=== PATIENT | female | born 2000 | race African-American/Black ===

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

== ENCOUNTER 2018-09-15 05:00 | Emergency (ER) | payer OTHER ==
[2018-09-15] MEDS ORDERED: TYLENOL PO ONE (05:08)
[2018-09-15 05:12] VITALS: BP 137/98
[2018-09-15 05:50] LABS: Basophils % (Auto) 0.2 % (0.0-1.8); Eosinophils # (Auto) 0.1 K/mm3 (0.0-0.4); Eosinophils % (Auto) 1.3 % (0.0-4.3); Hematocrit 38.4 % (30.3-42.9); Hemoglobin 12.8 gm/dl (10.1-14.3); Lymphocytes # (Auto) 1.1 K/mm3 (1.2-5.4); Lymphocytes % (Auto) 17.9 % (13.4-35.0); Mean Corpuscular HGB Conc 33 % (30-34); Mean Corpuscular Volume 85 fl (79-97); Monocytes # (Auto) 0.6 K/mm3 (0.0-0.8); Monocytes % (Auto) 9.8 % (0.0-7.3); Platelet Count 222 K/mm3 (140-440); Red Blood Count 4.52 M/mm3 (3.65-5.03); Red Cell Distribution Width 13.8 % (13.2-15.2)
[2018-09-15 05:56] LABS: Bilirubin,Urine NEG (Negative); Blood,Urine LG (Negative); Color,Urine Yellow (Yellow); Mucus,Urine FEW /HPF; Protein,Urine <15 mg/dL mg/dL (Negative); RBC,Urine > 182.0 /HPF (0.0-6.0); Urobilinogen,Urine < 2.0 mg/dL (<2.0)
[2018-09-15 05:57] LABS: HCG Qualitative,Urine Negative (Negative)
[2018-09-15 06:18] LABS: Alanine Aminotransferase 10 units/L (7-56); Albumin 4.1 g/dL (3.9-5); BUN/Creatinine Ratio 13; Blood Urea Nitrogen 5 mg/dL (7-17); Calcium 8.6 mg/dL (8.4-10.2); Hemolysis Index 4
--- NOTE | 2018-09-15 08:31 | Emergency Department Report ---
ED Abdominal Pain HPI - General Chief Complaint: Abdominal Pain Stated Complaint: ABD PAIN Time Seen by Provider: 09/15/18 08:02 Source: patient Mode of arrival: Ambulatory Limitations: No Limitations - History of Present Illness Initial Comments: She is a 18-year-old female comes to the ER complaining of abdominal pain. She started her period and is concerned that she may be . vSS. NO FEVER. NO TACHYCARDIA. BP NORMAL. Severity scale (0 -10): 5 - Related Data Home Medications Medication Instructions Recorded Confirmed Last Taken Pnv No.103/Folic/Om3s/Fish Oil 1 each PO BID 02/23/17 02/23/17 02/22/17 [ Gummies] Previous Rx's Medication Instructions Recorded Last Taken Type HYDROcodone/APAP 5-325 [[place] 1 each PO Q6HR PRN #30 tablet 02/25/17 Unknown Rx 5/325] Ibuprofen [Motrin] 800 mg PO Q8HR PRN #60 tablet 02/25/17 Unknown Rx Allergies Allergy/AdvReac Type Severity Reaction Status Date / Time No Known Allergies Allergy Verified 11/22/15 10:25 ED Review of Systems ROS: Stated complaint: ABD PAIN Other details as noted in HPI Comment: All other systems reviewed and negative ED Past Medical Hx - Past Medical History Previous Medical History?: No Hx Hypertension: No Hx Congestive Heart Failure: No Hx Diabetes: No Hx Deep Vein Thrombosis: No Hx Renal Disease: No Hx Sickle Cell Disease: No Hx Seizures: No Hx Asthma: No Hx COPD: No Hx HIV: No - Surgical History Past Surgical History?: No - Family History Family history: no significant - Social History Smoking Status: Never Smoker Substance Use Type: None - Medications Home Medications: Home Medications Medication Instructions Recorded Confirmed Last Taken Type Pnv No.103/Folic/Om3s/Fish Oil 1 each PO BID 02/23/17 02/23/17 02/22/17 History [ Gummies] HYDROcodone/APAP 5-325 [[place] 1 each PO Q6HR PRN #30 tablet 02/25/17 Unknown Rx 5/325] Ibuprofen [Motrin] 800 mg PO Q8HR PRN #60 tablet 02/25/17 Unknown Rx ED Physical Exam - General Limitations: No Limitations General appearance: alert - Head Head exam: Present: atraumatic - Eye Eye exam: Present: PERRL - ENT ENT exam: Present: mucous membranes moist - Neck Neck exam: Present: normal inspection - Respiratory Respiratory exam: Present: normal lung sounds bilaterally - Cardiovascular Cardiovascular Exam: Present: regular rate - GI/Abdominal GI/Abdominal exam: Present: soft, normal bowel sounds - Rectal Rectal exam: Present: deferred - Extremities Exam Extremities exam: Present: normal inspection, full ROM - Back Exam Back exam: Present: normal inspection, full ROM - Neurological Exam Neurological exam: Present: alert, oriented X3, CN II-XII intact - Psychiatric Psychiatric exam: Present: normal affect, normal mood - Skin Skin exam: Present: warm, dry, intact ED Course Vital Signs 09/15/18 09/15/18 09/15/18 05:04 05:06 05:11 Temperature 98.0 F 98 F Pulse Rate 89 90 Respiratory 18 18 16 Rate Blood Pressure 137/98 137/98 O2 Sat by Pulse 100 100 Oximetry ED Medical Decision Making - Lab Data Result diagrams: 09/15/18 05:20 09/15/18 05:20 - Medical Decision Making Vital Signs 09/15/18 09/15/18 09/15/18 05:04 05:06 05:11 Temperature 98.0 F 98 F Pulse Rate 89 90 Respiratory 18 18 16 Rate Blood Pressure 137/98 137/98 O2 Sat by Pulse 100 100 Oximetry Lab Results 09/15/18 09/15/18 09/15/18 Range/Units 05:20 05:20 05:20 WBC 6.3 (4.5-11.0) K/mm3 RBC 4.52 (3.65-5.03) M/mm3 Hgb 12.8 (10.1-14.3) gm/dl Hct 38.4 (30.3-42.9) % MCV 85 (79-97) fl MCH 28 (28-32) pg MCHC 33 (30-34) % RDW 13.8 (13.2-15.2) % Plt Count 222 (140-440) K/mm3 Lymph % (Auto) 17.9 (13.4-35.0) % [place] % (Auto) 9.8 H (0.0-7.3) % Eos % (Auto) 1.3 (0.0-4.3) % Baso % (Auto) 0.2 (0.0-1.8) % Lymph # 1.1 L (1.2-5.4) K/mm3 [place] # 0.6 (0.0-0.8) K/mm3 Eos # 0.1 (0.0-0.4) K/mm3 Baso # 0.0 (0.0-0.1) K/mm3 Seg Neutrophils % 70.8 H (40.0-70.0) % Seg Neutrophils # 4.5 (1.8-7.7) K/mm3 Sodium 138 (137-145) mmol/L Potassium 3.8 (3.6-5.0) mmol/L Chloride 101.9 (98-107) mmol/L Carbon Dioxide 23 (22-30) mmol/L Anion Gap 17 mmol/L BUN 5 L (7-17) mg/dL Creatinine 0.4 L (0.7-1.2) mg/dL Estimated GFR > 60 ml/min BUN/Creatinine Ratio 13 % Glucose 98 (65-100) mg/dL Calcium 8.6 (8.4-10.2) mg/dL Total Bilirubin 1.30 H (0.1-1.2) mg/dL AST 13 (5-40) units/L ALT 10 (7-56) units/L Alkaline Phosphatase 57 (35-129) units/L Total Protein 6.8 (6.3-8.2) g/dL Albumin 4.1 (3.9-5) g/dL Albumin/Globulin Ratio 1.5 % Lipase 28 (13-60) units/L Urine Color (Yellow) Urine Turbidity (Clear) Urine pH (5.0-7.0) Ur Specific [place] (1.003-1.030) Urine Protein (Negative) mg/dL Urine Glucose (UA) (Negative) mg/dL Urine Ketones (Negative) mg/dL Urine Blood (Negative) Urine Nitrite (Negative) Urine Bilirubin (Negative) Urine Urobilinogen (<2.0) mg/dL Ur Leukocyte Esterase (Negative) Urine WBC (Auto) (0.0-6.0) /HPF Urine RBC (Auto) (0.0-6.0) /HPF U Epithel Cells (Auto) (0-13.0) /HPF Urine Mucus /HPF Urine HCG, Qual (Negative) 09/15/18 Range/Units 05:37 WBC (4.5-11.0) K/mm3 RBC (3.65-5.03) M/mm3 Hgb (10.1-14.3) gm/dl Hct (30.3-42.9) % MCV (79-97) fl MCH (28-32) pg MCHC (30-34) % RDW (13.2-15.2) % Plt Count (140-440) K/mm3 Lymph % (Auto) (13.4-35.0) % [place] % (Auto) (0.0-7.3) % Eos % (Auto) (0.0-4.3) % Baso % (Auto) (0.0-1.8) % Lymph # (1.2-5.4) K/mm3 [place] # (0.0-0.8) K/mm3 Eos # (0.0-0.4) K/mm3 Baso # (0.0-0.1) K/mm3 Seg Neutrophils % (40.0-70.0) % Seg Neutrophils # (1.8-7.7) K/mm3 Sodium (137-145) mmol/L Potassium (3.6-5.0) mmol/L Chloride (98-107) mmol/L Carbon Dioxide (22-30) mmol/L Anion Gap mmol/L BUN (7-17) mg/dL Creatinine (0.7-1.2) mg/dL Estimated GFR ml/min BUN/Creatinine Ratio % Glucose (65-100) mg/dL Calcium (8.4-10.2) mg/dL Total Bilirubin (0.1-1.2) mg/dL AST (5-40) units/L ALT (7-56) units/L Alkaline Phosphatase (35-129) units/L Total Protein (6.3-8.2) g/dL Albumin (3.9-5) g/dL Albumin/Globulin Ratio % Lipase (13-60) units/L Urine Color Yellow (Yellow) Urine Turbidity Hazy (Clear) Urine pH 7.0 (5.0-7.0) Ur Specific [place] 1.005 (1.003-1.030) Urine Protein <15 mg/dl (Negative) mg/dL Urine Glucose (UA) Neg (Negative) mg/dL Urine Ketones Neg (Negative) mg/dL Urine Blood Lg (Negative) Urine Nitrite Neg (Negative) Urine Bilirubin Neg (Negative) Urine Urobilinogen < 2.0 (<2.0) mg/dL Ur Leukocyte Esterase Neg (Negative) Urine WBC (Auto) 8.0 H (0.0-6.0) /HPF Urine RBC (Auto) > 182.0 (0.0-6.0) /HPF U Epithel Cells (Auto) 1.0 (0-13.0) /HPF Urine Mucus Few /HPF Urine HCG, Qual Negative (Negative) LABS AND PREG DISCUSSED WITH PT DC HOME WITH DC PLAN OF CARE Critical care attestation.: If time is entered above; I have spent that time in minutes in the direct care of this critically ill patient, excluding procedure time. ED Disposition Clinical Impression: Menses painful Disposition: DC-01 TO HOME OR SELFCARE Is pt being admited?: No Does the pt Need Aspirin: No Condition: Stable Additional Instructions: HYDRATE WELL WITH WATER MOTRIN OR TYLENOL FOR PAIN DIET TOLERATED FOLLOW UP PCP REFERRAL BELOW TBILI 1.3 TODAY LIPASE NORMAL OTHER LABS ALL NORMAL NEG Referrals: SELENA BRAUN [Other] - 3-5 Days Time of Disposition: 08:50
== END 2018-09-15 09:00 | disposition home or self-care (01) ==
LOC: ED 05:00
DX: N94.6 Dysmenorrhea, unspecified (principal); Z79.899 Other long term (current) drug therapy
CPT/HCPCS: 36415; 80053; 81001; 81025; 83690; 85025; 99283

== ENCOUNTER 2020-05-15 10:39 | Emergency (ER) | payer SELFPAY ==
--- NOTE | 2020-05-15 12:13 | Emergency Department Report ---
ED HPI - General Chief complaint: Abdominal Pain Stated complaint: 9WKS /STOMACH PAIN Time Seen by Provider: 05/15/20 12:12 Source: patient Mode of arrival: Ambulatory Limitations: No Limitations - History of Present Illness Initial comments: Patient is a 19-year-old female who presents emergency room with complaints of lower abdominal pain that began at 5 AM while at work today. She states that whenever she walks around she begins to feel the pain but when she sits down and rest she has no pain. She states that she had to leave work today. 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 She denies any fever, nausea, vomiting, diarrhea, urinary symptoms, vaginal bleeding, vaginal discharge, back pain. States her last menstrual cycle was February 12. She states that she is approximately 9 weeks . She denies any past medical history. No allergies to medications. /P: 3/A: 0 - Related Data Home Medications Medication Instructions Recorded Confirmed Last Taken Pnv No.103/Folic/Om3s/Fish Oil 1 each PO BID 02/23/17 02/23/17 02/22/17 [ Gummies] Previous Rx's Medication Instructions Recorded Last Taken Type HYDROcodone/APAP 5-325 [[place] 1 each PO Q6HR PRN #30 tablet 02/25/17 Unknown Rx 5/325] Ibuprofen [Motrin] 800 mg PO Q8HR PRN #60 tablet 02/25/17 Unknown Rx Allergies Allergy/AdvReac Type Severity Reaction Status Date / Time No Known Allergies Allergy Verified 11/22/15 10:25 ED Review of Systems ROS: Stated complaint: 9WKS /STOMACH PAIN Other details as noted in HPI Comment: All other systems reviewed and negative ED Past Medical Hx - Past Medical History Previous Medical History?: No Hx Hypertension: No Hx Congestive Heart Failure: No Hx Diabetes: No Hx Deep Vein Thrombosis: No Hx Renal Disease: No Hx Sickle Cell Disease: No Hx Seizures: No Hx Asthma: No Hx COPD: No Hx HIV: No - Surgical History Past Surgical History?: No - Social History Smoking Status: Never Smoker Substance Use Type: None - Medications Home Medications: Home Medications Medication Instructions Recorded Confirmed Last Taken Type Pnv No.103/Folic/Om3s/Fish Oil 1 each PO BID 02/23/17 02/23/17 02/22/17 History [ Gummies] HYDROcodone/APAP 5-325 [[place] 1 each PO Q6HR PRN #30 tablet 02/25/17 Unknown Rx 5/325] Ibuprofen [Motrin] 800 mg PO Q8HR PRN #60 tablet 02/25/17 Unknown Rx ED Physical Exam - General Limitations: No Limitations General appearance: alert, in no apparent distress - Head Head exam: Present: atraumatic, normocephalic - Eye Eye exam: Present: normal appearance - ENT ENT exam: Present: mucous membranes moist - Respiratory Respiratory exam: Present: normal lung sounds bilaterally. Absent: respiratory distress, wheezes, rales, rhonchi, stridor, chest wall tenderness, accessory muscle use, decreased breath sounds, prolonged expiratory - Cardiovascular Cardiovascular Exam: Present: regular rate, normal rhythm, normal heart sounds. Absent: systolic murmur, diastolic murmur, rubs, gallop - GI/Abdominal GI/Abdominal exam: Present: soft, normal bowel sounds. Absent: distended, tenderness, guarding, rebound, rigid - Neurological Exam Neurological exam: Present: alert, oriented X3 - Psychiatric Psychiatric exam: Present: normal affect, normal mood - Skin Skin exam: Present: warm, dry, intact ED Course Vital Signs 05/15/20 05/15/20 11:15 15:33 Temperature 98.3 F 97.9 F Pulse Rate 82 68 Respiratory 18 16 Rate Blood Pressure 108/70 Blood Pressure 122/71 [Right] O2 Sat by Pulse 100 100 Oximetry ED Medical Decision Making - Lab Data Result diagrams: 05/15/20 12:17 05/15/20 12:17 Lab Results 05/15/20 05/15/20 05/15/20 Range/Units 12:17 12:17 12:17 WBC 8.7 (4.5-11.0) K/mm3 RBC 4.17 (3.65-5.03) M/mm3 Hgb 12.6 (10.1-14.3) gm/dl Hct 35.9 (30.3-42.9) % MCV 86 (79-97) fl MCH 30 (28-32) pg MCHC 35 H (30-34) % RDW 14.8 (13.2-15.2) % Plt Count 248 (140-440) K/mm3 Lymph % (Auto) 23.0 (13.4-35.0) % [place] % (Auto) 10.0 H (0.0-7.3) % Eos % (Auto) 0.8 (0.0-4.3) % Baso % (Auto) 0.3 (0.0-1.8) % Lymph # (Auto) 2.0 (1.2-5.4) K/mm3 [place] # (Auto) 0.9 H (0.0-0.8) K/mm3 Eos # (Auto) 0.1 (0.0-0.4) K/mm3 Baso # (Auto) 0.0 (0.0-0.1) K/mm3 Seg Neutrophils % 65.9 (40.0-70.0) % Seg Neutrophils # 5.7 (1.8-7.7) K/mm3 Sodium 136 L (137-145) mmol/L Potassium 3.9 (3.6-5.0) mmol/L Chloride 100.6 (98-107) mmol/L Carbon Dioxide 27 (22-30) mmol/L Anion Gap 12 mmol/L BUN 9 (7-17) mg/dL Creatinine 0.4 L (0.6-1.2) mg/dL Estimated GFR > 60 ml/min BUN/Creatinine Ratio 23 % Glucose 61 L (65-100) mg/dL Calcium 9.5 (8.4-10.2) mg/dL Total Bilirubin 0.50 (0.1-1.2) mg/dL AST 15 (5-40) units/L ALT 9 (7-56) units/L Alkaline Phosphatase 44 (35-129) units/L Total Protein 7.9 (6.3-8.2) g/dL Albumin 4.1 (3.9-5) g/dL Albumin/Globulin Ratio 1.1 % Lipase 41 (13-60) units/L HCG, Quant > 81905 H (0-4) mIU/mL Urine Color (Yellow) Urine Turbidity (Clear) Urine pH (5.0-7.0) Ur Specific [place] (1.003-1.030) Urine Protein (Negative) mg/dL Urine Glucose (UA) (Negative) mg/dL Urine Ketones (Negative) mg/dL Urine Blood (Negative) Urine Nitrite (Negative) Urine Bilirubin (Negative) Urine Urobilinogen (<2.0) mg/dL Ur Leukocyte Esterase (Negative) Urine WBC (Auto) (0.0-6.0) /HPF Urine RBC (Auto) (0.0-6.0) /HPF U Epithel Cells (Auto) (0-13.0) /HPF Urine Mucus /HPF 05/15/20 Range/Units 12:28 WBC (4.5-11.0) K/mm3 RBC (3.65-5.03) M/mm3 Hgb (10.1-14.3) gm/dl Hct (30.3-42.9) % MCV (79-97) fl MCH (28-32) pg MCHC (30-34) % RDW (13.2-15.2) % Plt Count (140-440) K/mm3 Lymph % (Auto) (13.4-35.0) % [place] % (Auto) (0.0-7.3) % Eos % (Auto) (0.0-4.3) % Baso % (Auto) (0.0-1.8) % Lymph # (Auto) (1.2-5.4) K/mm3 [place] # (Auto) (0.0-0.8) K/mm3 Eos # (Auto) (0.0-0.4) K/mm3 Baso # (Auto) (0.0-0.1) K/mm3 Seg Neutrophils % (40.0-70.0) % Seg Neutrophils # (1.8-7.7) K/mm3 Sodium (137-145) mmol/L Potassium (3.6-5.0) mmol/L Chloride (98-107) mmol/L Carbon Dioxide (22-30) mmol/L Anion Gap mmol/L BUN (7-17) mg/dL Creatinine (0.6-1.2) mg/dL Estimated GFR ml/min BUN/Creatinine Ratio % Glucose (65-100) mg/dL Calcium (8.4-10.2) mg/dL Total Bilirubin (0.1-1.2) mg/dL AST (5-40) units/L ALT (7-56) units/L Alkaline Phosphatase (35-129) units/L Total Protein (6.3-8.2) g/dL Albumin (3.9-5) g/dL Albumin/Globulin Ratio % Lipase (13-60) units/L HCG, Quant (0-4) mIU/mL Urine Color Yellow (Yellow) Urine Turbidity Clear (Clear) Urine pH 6.0 (5.0-7.0) Ur Specific [place] 1.020 (1.003-1.030) Urine Protein <15 mg/dl (Negative) mg/dL Urine Glucose (UA) Neg (Negative) mg/dL Urine Ketones Neg (Negative) mg/dL Urine Blood Neg (Negative) Urine Nitrite Neg (Negative) Urine Bilirubin Neg (Negative) Urine Urobilinogen < 2.0 (<2.0) mg/dL Ur Leukocyte Esterase Neg (Negative) Urine WBC (Auto) 1.0 (0.0-6.0) /HPF Urine RBC (Auto) 1.0 (0.0-6.0) /HPF U Epithel Cells (Auto) 6.0 (0-13.0) /HPF Urine Mucus Few /HPF - Radiology Data Radiology results: report reviewed Ordering Physician: BREN CHAND Date of Service: 05/15/20 Procedure(s): US OB <= 14 weeks fetus Accession Number(s): [id number] cc: BREN CHAND US OB <= 14 weeks fetus INDICATION / CLINICAL INFORMATION: , abd pain. COMPARISON: None available. FINDINGS: Single, viable intrauterine . heart rate 164. [place]-rump length measures 14 mm, corresponding to a gestational age of 7 weeks 5 days. 2.3 cm hypoechoic but not completely cystic left ovarian mass could represent corpus luteal cyst. Right ovary is normal. IMPRESSION: 1. Viable 7 week 5 day intrauterine . Signer Name: Khari Pichardo MD Signed: 05/15/2020 1:59 PM Workstation Name: [id number] Transcribed By: TM Dictated By: Khari Pichardo MD Electronically Authenticated By: Khari Pichardo MD Signed Date/Time: 05/15/20 3602 DD/ 1357 TD/TT: - Medical Decision Making Patient is a 19-year-old female who presents emergency room with complaints of lower abdominal pain that began at 5 AM while at work today. She states that whenever she walks around she begins to feel the pain but when she sits down and rest she has no pain. She states that she had to leave work today. 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 She denies any fever, nausea, vomiting, diarrhea, urinary symptoms, vaginal bleeding, vaginal discharge, back pain. States her last menstrual cycle was February 12. She states that she is approximately 9 weeks . She denies any past medical history. No allergies to medications. /P: 3/A: 0. vitals are normal. No abdominal tenderness on exam, no guarding, no rebound, no rigidity, normal bowel sounds, no peritoneal signs. Labs with mildly decreased blood sugar, patient given juice while in the emergency department. UA is within normal limits. Patient is Rh+ upon chart review. OB ultrasound 1. Viable 7 week 5 day intrauterine , 2.3 cm hypoechoic but not completely cystic left ovarian mass could represent corpus luteal cyst. Right ovary is normal. Discussed all results with patient and answered questions, patient given her ultrasound report. Patient given Tylenol in the emergency department and symptoms improved. Advised patient May take Tylenol as needed for discomfort. Increase your water intake. Follow-up with your E M ASSEMBLER. Follow-up with your primary care doctor. Return to emergency room for any new or worsening symptoms. - Differential Diagnosis Ectopic, IUP, ovarian cyst, fibroids, UTI, miscarriage, placenta previa Critical care attestation.: If time is entered above; I have spent that time in minutes in the direct care of this critically ill patient, excluding procedure time. ED Disposition Clinical Impression: Ovarian mass, left Abdominal pain in Qualifiers: Trimester: first trimester Qualified Code(s): O26.891 - Other specified pr egnancy related conditions, first trimester Disposition: DC-01 TO HOME OR SELFCARE Is pt being admited?: No Does the pt Need Aspirin: No Condition: Stable Instructions: Abdominal Pain During , Hrud-we-[id number], Abdominal Pain (ED) Additional Instructions: May take Tylenol as needed for discomfort. Increase your water intake. Follow- up with your E M ASSEMBLER. Follow-up with your primary care doctor. Return to emergency room for any new or worsening symptoms. Referrals: PRIMARY CAREMD [Primary Care Provider] - 2-3 Days [facility] [Provider Group] - 2-3 Days Time of Disposition: 15:17 Print Language: UZBEK
[2020-05-15 12:47] LABS: Bilirubin,Urine NEG (Negative); Blood,Urine NEG (Negative); Color,Urine Yellow (Yellow); Mucus,Urine FEW /HPF; Protein,Urine <15 mg/dL mg/dL (Negative); Urobilinogen,Urine < 2.0 mg/dL (<2.0)
[2020-05-15 13:00] LABS: Basophils % (Auto) 0.3 % (0.0-1.8); Eosinophils # (Auto) 0.1 K/mm3 (0.0-0.4); Eosinophils % (Auto) 0.8 % (0.0-4.3); Hematocrit 35.9 % (30.3-42.9); Hemoglobin 12.6 gm/dl (10.1-14.3); Mean Corpuscular HGB Conc 35 % (30-34); Mean Corpuscular Volume 86 fl (79-97); Monocytes # (Auto) 0.9 K/mm3 (0.0-0.8); Platelet Count 248 K/mm3 (140-440); Red Blood Count 4.17 M/mm3 (3.65-5.03); Red Cell Distribution Width 14.8 % (13.2-15.2)
[2020-05-15 13:18] LABS: Alanine Aminotransferase 9 units/L (7-56); Albumin 4.1 g/dL (3.9-5); Blood Urea Nitrogen 9 mg/dL (7-17); Calcium 9.5 mg/dL (8.4-10.2); Hemolysis Index 21
[2020-05-15 13:21] LABS: BUN/Creatinine Ratio 23
--- NOTE | 2020-05-15 14:04 | Ultrasound Report ---
US OB <= 14 weeks fetus INDICATION / CLINICAL INFORMATION: , abd pain. COMPARISON: None available. FINDINGS: Single, viable intrauterine . heart rate 164. [place]-rump length measures 14 mm, corresponding to a gestational age of 7 weeks 5 days. 2.3 cm hypoechoic but not completely cystic left ovarian mass could represent corpus luteal cyst. Rig ht ovary is normal. IMPRESSION: 1. Viable 7 week 5 day intrauterine . Signer Name: Khari Pichardo MD Signed: 05/15/2020 1:59 PM Workstation Name: [id number]
[2020-05-15] MEDS ORDERED: ACETAMINOPHEN 325 MG TAB PO ONE (14:27)
[2020-05-15 15:36] VITALS: BP 108/70
--- NOTE | 2020-05-16 08:01 | Ultrasound Report ---
US OB <= 14 weeks fetus INDICATION / CLINICAL INFORMATION: , abd pain. COMPARISON: None available. FINDINGS: Single, viable intrauterine . heart rate 164. [place]-rump length measures 14 mm, corresponding to a gestational age of 7 weeks 5 days. 2.3 cm hypoechoic but not completely cystic left ovarian mass could represent corpus luteal cyst. Rig ht ovary is normal. IMPRESSION: 1. Viable 7 week 5 day intrauterine . Signer Name: Khari Pichardo MD Signed: 05/15/2020 1:59 PM Workstation Name: [id number]
== END 2020-05-15 15:35 | disposition home or self-care (01) ==
LOC: ED 10:39
DX: O26.891 Other specified pregnancy related conditions, first trimester (principal); Z3A.01 Less than 8 weeks gestation of pregnancy
CPT/HCPCS: 36415; 76801; 76817; 80053; 81001; 83690; 84702; 85025

== ENCOUNTER 2020-07-07 11:04 | Emergency (ER) | payer MEDICAID, OTHER ==
--- NOTE | 2020-07-07 11:24 | Emergency Department Report ---
ED General Adult HPI - General Chief complaint: Abdominal Pain Stated complaint: 15WKS PREG; ABDOMINAL PAIN Time Seen by Provider: 07/07/20 11:13 Source: patient Mode of arrival: Ambulatory Limitations: No Limitations - History of Present Illness Initial comments: 20-year-old female patient presents with complaints of abdominal cramping during . Patient states she is 15 weeks and is currently following with an MECHANICAL PRODUCT ENGINEER. She states that the cramping began yesterday and she did see her MECHANICAL PRODUCT ENGINEER, however they did not perform an ultrasound. She denies any vaginal bleeding, vaginal discharge, dysuria/hematuria/urinary frequency, dyspareunia, nausea/vomiting/diarrhea, or constipation. No fever/chills/sweats per patient. The cramping comes and goes per patient. - Related Data Home Medications Medication Instructions Recorded Confirmed Last Taken Pnv No.103/Folic/Om3s/Fish Oil 1 each PO BID 02/23/17 02/23/17 02/22/17 [ Gummies] Previous Rx's Medication Instructions Recorded Last Taken Type HYDROcodone/APAP 5-325 [[place] 1 each PO Q6HR PRN #30 tablet 02/25/17 Unknown Rx 5/325] Ibuprofen [Motrin] 800 mg PO Q8HR PRN #60 tablet 02/25/17 Unknown Rx Allergies Allergy/AdvReac Type Severity Reaction Status Date / Time No Known Allergies Allergy Verified 07/07/20 11:08 ED Review of Systems ROS: Stated complaint: 15WKS PREG; ABDOMINAL PAIN Other details as noted in HPI Constitutional: denies: chills, fever, malaise Respiratory: denies: cough, shortness of breath Cardiovascular: denies: chest pain Gastrointestinal: abdominal pain. denies: nausea, vomiting, diarrhea, constipation, hematemesis, melena, hematochezia Genitourinary: denies: urgency, dysuria, frequency, hematuria, discharge, abnormal menses, dyspareunia Musculoskeletal: denies: back pain Skin: denies: change in color Neurological: denies: headache, paresthesias Hematological/Lymphatic: denies: swollen glands ED Past Medical Hx - Past Medical History Hx Hypertension: No Hx Congestive Heart Failure: No Hx Diabetes: No Hx Deep Vein Thrombosis: No Hx Renal Disease: No Hx Sickle Cell Disease: No Hx Seizures: No Hx Asthma: No Hx COPD: No Hx HIV: No - Social History Smoking Status: Never Smoker Substance Use Type: None - Medications Home Medications: Home Medications Medication Instructions Recorded Confirmed Last Taken Type Pnv No.103/Folic/Om3s/Fish Oil 1 each PO BID 02/23/17 02/23/17 02/22/17 History [ Gummies] HYDROcodone/APAP 5-325 [[place] 1 each PO Q6HR PRN #30 tablet 02/25/17 Unknown Rx 5/325] Ibuprofen [Motrin] 800 mg PO Q8HR PRN #60 tablet 02/25/17 Unknown Rx ED Physical Exam - General Limitations: No Limitations General appearance: alert, in no apparent distress - Head Head exam: Present: atraumatic, normocephalic - Eye Eye exam: Present: normal appearance. Absent: scleral icterus - Neck Neck exam: Present: normal inspection - Respiratory Respiratory exam: Present: normal lung sounds bilaterally. Absent: respiratory distress - Cardiovascular Cardiovascular Exam: Present: regular rate, normal rhythm - GI/Abdominal GI/Abdominal exam: Present: soft, normal bowel sounds. Absent: distended, tenderness, guarding, rebound, rigid - Extremities Exam Extremities exam: Present: full ROM - Back Exam Back exam: Present: normal inspection. Absent: CVA tenderness (R), CVA tenderness (L) - Neurological Exam Neurological exam: Present: alert, oriented X3, normal gait - Psychiatric Psychiatric exam: Present: normal affect, anxious - Skin Skin exam: Present: warm, dry, intact, normal color. Absent: rash ED Course Vital Signs 07/07/20 07/07/20 11:11 14:45 Temperature 98.2 F 98.1 F Pulse Rate 91 H 89 Respiratory 20 16 Rate Blood Pressure 126/77 Blood Pressure 112/65 [Right] O2 Sat by Pulse 99 100 Oximetry ED Medical Decision Making - Lab Data Result diagrams: 07/07/20 12:40 07/07/20 12:40 - Radiology Data Radiology results: report reviewed US OB >= 14 weeks Fetus INDICATION / CLINICAL INFORMATION: pain in . COMPARISON: 05/15/2020 FINDINGS: Single, viable intrauterine . heart rate 156. position changes during the exam. Amniotic fluid volume is subjectively normal. Placenta is fundal and grade 1. Cervical length measures 3 cm. Biparietal diameter 3.1 cm, 15 weeks 6 days. Head circumference 12.2 cm, 16 weeks 1 day. Abdominal circumference 10.7 cm, 16 weeks 4 days. Femur length 1.8 cm, 15 weeks. Estimated body weight 141 g. IMPRESSION: 1. Single, viable 16 week 0 day intrauterine . - Medical Decision Making 20-year-old female patient presents with complaints of abdominal cramping during . Patient states she is 15 weeks and is currently following with an MECHANICAL PRODUCT ENGINEER. She states that the cramping began yesterday and she did see her MECHANICAL PRODUCT ENGINEER, however they did not perform an ultrasound. She denies any vaginal bleeding, vaginal discharge, dysuria/hematuria/urinary frequency, dyspareunia, nausea/vomiting/diarrhea, or constipation. No fever/chills/sweats per patient. The cramping comes and goes per patient. No significant abnormalities normal CBC, CMP, or UA. Ultrasound shows viable 16-week 0-day IUP without any acute abnormalities. Patient's vitals are normal, she is well-appearing, she is stable for discharge home. Recommend follow-up with her MECHANICAL PRODUCT ENGINEER in 1 week. Tylenol as needed for pain. Discussed signs and symptoms that should prompt immediate return to the emergency department in detail with patient who verbalizes understanding. Critical care attestation.: If time is entered above; I have spent that time in minutes in the direct care of this critically ill patient, excluding procedure time. ED Disposition Clinical Impression: Abdominal pain during in second trimester Disposition: DC-01 TO HOME OR SELFCARE Is pt being admited?: No Condition: Stable Instructions: Abdominal Pain During , [id number], Abdominal Pain (ED) Additional Instructions: Please follow up with your OBGYN in 1 week for follow up and further evaluation Referrals: PRIMARY CARE, [Primary Care Provider] - 3-5 Days
--- NOTE | 2020-07-07 12:20 | Ultrasound Report ---
US OB >= 14 weeks Fetus INDICATION / CLINICAL INFORMATION: pain in . COMPARISON: 05/15/2020 FINDINGS: Single, viable intrauterine . heart rate 156. position changes during the exam. Amniotic fluid volume is subjectively normal. Placenta is fun adarsh and grade 1. Cervical length measures 3 cm. Biparietal diameter 3.1 cm, 15 weeks 6 days. Head circumference 12.2 cm, 16 weeks 1 day. Abdominal circumference 10.7 cm, 16 weeks 4 days. Femur length 1.8 cm, 15 weeks. Estimated body weight 141 g. IMPRESSION: 1. Single, viable 16 week 0 day intrauterine . Signer Name: Khari Pichardo MD Signed: 07/07/2020 12:15 PM Workstation Name: [id number]
[2020-07-07 13:03] LABS: Basophils % (Auto) 0.3 % (0.0-1.8); Eosinophils # (Auto) 0.1 K/mm3 (0.0-0.4); Eosinophils % (Auto) 0.6 % (0.0-4.3); Hematocrit 34.1 % (30.3-42.9); Hemoglobin 11.5 gm/dl (10.1-14.3); Lymphocytes # (Auto) 1.5 K/mm3 (1.2-5.4); Lymphocytes % (Auto) 17.6 % (13.4-35.0); Mean Corpuscular HGB Conc 34 % (30-34); Mean Corpuscular Volume 88 fl (79-97); Monocytes # (Auto) 0.7 K/mm3 (0.0-0.8); Monocytes % (Auto) 8.1 % (0.0-7.3); Platelet Count 197 K/mm3 (140-440); Red Blood Count 3.85 M/mm3 (3.65-5.03); Red Cell Distribution Width 13.7 % (13.2-15.2)
[2020-07-07 13:26] LABS: Alanine Aminotransferase 8 units/L (7-56); Albumin 3.4 g/dL (3.9-5); Blood Urea Nitrogen 7 mg/dL (7-17); Calcium 8.5 mg/dL (8.4-10.2); Hemolysis Index 5
[2020-07-07 13:27] LABS: BUN/Creatinine Ratio 18
[2020-07-07 14:10] LABS: Bilirubin,Urine NEG (Negative); Blood,Urine NEG (Negative); Color,Urine Yellow (Yellow); Mucus,Urine FEW /HPF; Protein,Urine <15 mg/dL mg/dL (Negative); RBC,Urine < 1.0 /HPF (0.0-6.0); Urobilinogen,Urine < 2.0 mg/dL (<2.0); WBC,Urine < 1.0 /HPF (0.0-6.0)
[2020-07-07 14:46] VITALS: BP 112/65
== END 2020-07-07 14:47 | disposition home or self-care (01) ==
LOC: ED 11:04
DX: O26.892 Other specified pregnancy related conditions, second trimester (principal); R10.9 Unspecified abdominal pain; Z3A.15 15 weeks gestation of pregnancy; Z79.1 Long term (current) use of non-steroidal anti-inflammatories (NSAID); Z79.899 Other long term (current) drug therapy
CPT/HCPCS: 36415; 76805; 80053; 81001; 84702; 85025

== ENCOUNTER 2020-09-15 21:59 | Outpatient (CLI) | payer OTHER ==
[2020-09-15] MEDS ORDERED: LACTATED RINGERS 500 ML IV ONE (23:02)
[2020-09-15 23:05] VITALS: BP 113/63
[2020-09-15] MEDS ORDERED: LACTATED RINGERS 1,000 ML IV SCH (23:15)
[2020-09-15 23:25] LABS: Mucus,Urine 3+ /HPF
[2020-09-15 23:42] LABS: Bilirubin,Urine NEG (Negative); Blood,Urine NEG (Negative); Color,Urine Yellow (Yellow); Urobilinogen,Urine < 2.0 mg/dL (<2.0)
[2020-09-15] MEDS ORDERED: TERBUTALINE 1 MG/1 ML INJ SUB-Q SCH (23:45)
--- NOTE | 2020-09-16 07:25 | Ultrasound Report ---
ULTRASOUND BIOPHYSICAL PROFILE INDICATION: wellbeing; pt reports decreased moveme. COMPARISON: 07/07/2020 FINDINGS: breathing movement = 2 Gross body movement = 2 tone = 2 Qualitative amniotic fluid volume = 2 Total biophysical score = 01/14 Presentation is Cephalic. heart rate is 150 beats per minute. IMPRESSION: biophysical profile = 01/14 Signer Name: Oscar Daniel MD Signed: 09/16/2020 7:21 AM Workstation Name: [id number]
== END 2020-09-16 02:50 | disposition home or self-care (01) ==
LOC: TRG 21:59 → APU 22:16 → TRG 09-16 02:50
PROVIDERS: ATTEND Obstetrics & Gynecology
DX: O36.8120 Decreased fetal movements, second trimester, not applicable or unspecified (principal); Z3A.26 26 weeks gestation of pregnancy
CPT/HCPCS: 59025; 76819; 81001

== ENCOUNTER 2020-09-22 19:18 | Emergency (ER) | payer OTHER ==
[2020-09-22 20:16] VITALS: BP 120/70
--- NOTE | 2020-09-22 20:35 | Emergency Department Report ---
ED Back Pain/Injury HPI - General Chief Complaint: Back Pain/Injury Stated Complaint: PULLED MUSCLE IN LT LEG Time Seen by Provider: 09/22/20 20:14 Source: patient Limitations: No Limitations - History of Present Illness Initial Comments: Patient is a 20-year-old female who presents emergency room complaints of left lower back pain that radiates down her left leg that began a couple days ago. 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 She denies any fall or injury. She denies ever having this in the past. She is currently 27 weeks and goes to [employer]. She denies any abdominal pain or vaginal bleeding. She denies any numbness, weakness, bowel or bladder incontinence, fever, vomiting, diarrhea, urinary symptoms. No past medical history. No allergies to medications. - Related Data Home Medications Medication Instructions Recorded Confirmed Last Taken Pnv No.103/Folic/Om3s/Fish Oil 1 each PO BID 02/23/17 02/23/17 02/22/17 [ Gummies] Previous Rx's Medication Instructions Recorded Last Taken Type HYDROcodone/APAP 5-325 [[place] 1 each PO Q6HR PRN #30 tablet 02/25/17 Unknown Rx 5/325] Ibuprofen [Motrin] 800 mg PO Q8HR PRN #60 tablet 02/25/17 Unknown Rx Acetaminophen [Tylenol] 650 mg PO Q8HR PRN #20 capsule 09/22/20 Unknown Rx Menthol/Camphor [[place] 1 applicatio TP BID #18 oint...g. 09/22/20 Unknown Rx Ointment] Allergies Allergy/AdvReac Type Severity Reaction Status Date / Time No Known Allergies Allergy Verified 07/07/20 11:08 ED Review of Systems ROS: Stated complaint: PULLED MUSCLE IN LT LEG Other details as noted in HPI Comment: All other systems reviewed and negative ED Past Medical Hx - Past Medical History Hx Hypertension: No Hx Congestive Heart Failure: No Hx Diabetes: No Hx Deep Vein Thrombosis: No Hx Renal Disease: No Hx Sickle Cell Disease: No Hx Seizures: No Hx Asthma: No Hx COPD: No Hx HIV: No - Social History Smoking Status: Never Smoker - Medications Home Medications: Home Medications Medication Instructions Recorded Confirmed Last Taken Type Pnv No.103/Folic/Om3s/Fish Oil 1 each PO BID 02/23/17 02/23/17 02/22/17 History [ Gummies] HYDROcodone/APAP 5-325 [[place] 1 each PO Q6HR PRN #30 tablet 02/25/17 Unknown Rx 5/325] Ibuprofen [Motrin] 800 mg PO Q8HR PRN #60 tablet 02/25/17 Unknown Rx Acetaminophen [Tylenol] 650 mg PO Q8HR PRN #20 capsule 09/22/20 Unknown Rx Menthol/Camphor [[place] 1 applicatio TP BID #18 oint...g. 09/22/20 Unknown Rx Ointment] ED Physical Exam - General Limitations: No Limitations General appearance: alert, in no apparent distress - Head Head exam: Present: atraumatic, normocephalic - Eye Eye exam: Present: normal appearance - ENT ENT exam: Present: mucous membranes moist - Neck Neck exam: Present: normal inspection, full ROM. Absent: tenderness - Respiratory Respiratory exam: Present: normal lung sounds bilaterally. Absent: respiratory distress, wheezes, rales, rhonchi, stridor, chest wall tenderness, accessory muscle use, decreased breath sounds, prolonged expiratory - Cardiovascular Cardiovascular Exam: Present: regular rate, normal rhythm, normal heart sounds. Absent: systolic murmur, diastolic murmur, rubs, gallop - Back Exam Back exam: Present: normal inspection, full ROM, paraspinal tenderness (left lumbar paraspinal muscular ttp, no midline C-spine, T-spine or L-spine ttp, no step offs, no deformities). Absent: vertebral tenderness - Neurological Exam Neurological exam: Present: alert, oriented X3, CN II-XII intact, normal gait. Absent: motor sensory deficit - Psychiatric Psychiatric exam: Present: normal affect, normal mood - Skin Skin exam: Present: warm, dry, intact ED Course Vital Signs 09/22/20 20:13 Temperature 98.2 F Pulse Rate 82 Respiratory 18 Rate Blood Pressure 120/70 O2 Sat by Pulse 99 Oximetry ED Medical Decision Making - Medical Decision Making Patient is a 20-year-old female who presents emergency room complaints of left lower back pain that radiates down her left leg that began a couple days ago. 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 She denies any fall or injury. She denies ever having this in the past. She is currently 27 weeks and goes to [employer]. She denies any abdominal pain or vaginal bleeding. She denies any numbness, weakness, bowel or bladder incontinence, fever, vomiting, diarrhea, urinary symptoms. No past medical history. No allergies to medications. Vitals are normal. On exam:left lumbar paraspinal muscular ttp, no midline C-spine, T- spine or L-spine ttp, no step offs, no deformities, no focal neuro deficits. Symptoms and examination appear most consistent with sciatica which is common during . Patient given prescription for Tylenol and [place] balm ointment. Advised patient Please use medication as prescribed. Please do the stretches for sciatica. May use ice pack, heating pad, rest, Epson salt bath. Follow-up with your primary care doctor. Follow-up with [employer]. Return to emergency room for new or worsening symptoms. Critical care attestation.: If time is entered above; I have spent that time in minutes in the direct care of this critically ill patient, excluding procedure time. ED Disposition Clinical Impression: Low back pain Qualifiers: Chronicity: acute Back pain laterality: left Sciatica presence: with sciatica Sciatica laterality: sciatica of left side Qualified Code(s): M54.42 - Lumbago with sciatica, left side Disposition: TO HOME OR SELFCARE Is pt being admited?: No Does the pt Need Aspirin: No Condition: Stable Instructions: Sciatica Additional Instructions: Please use medication as prescribed. Please do the stretches for sciatica. May use ice pack, heating pad, rest, Epson salt bath. Follow-up with your primary care doctor. Follow-up with [employer]. Return to emergency room for new or worsening symptoms. Prescriptions: Menthol/Camphor [[place] Ointment] 1 applicatio TP BID #18 oint...g. 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
== END 2020-09-22 21:06 | disposition home or self-care (01) ==
LOC: ED 19:18
DX: O26.892 Other specified pregnancy related conditions, second trimester (principal); M54.5 Low back pain; M79.605 Pain in left leg; Z3A.27 27 weeks gestation of pregnancy; Z79.1 Long term (current) use of non-steroidal anti-inflammatories (NSAID); Z79.899 Other long term (current) drug therapy
CPT/HCPCS: 99281

== ENCOUNTER 2020-09-30 12:43 | Outpatient (CLI) | payer OTHER ==
[2020-09-30 13:04] VITALS: BP 126/67
[2020-09-30] MEDS ORDERED: MORPHINE 4 MG/1 ML INJ IV ONE (14:01)
[2020-09-30] MEDS ORDERED: hydrOXYzine HCL 100 MG/2 ML INJ IM ONE (14:02)
[2020-09-30 14:04] LABS: Bilirubin,Urine NEG (Negative); Blood,Urine NEG (Negative); Color,Urine Yellow (Yellow); Mucus,Urine FEW /HPF; Protein,Urine <15 mg/dL mg/dL (Negative); RBC,Urine < 1.0 /HPF (0.0-6.0); Urobilinogen,Urine < 2.0 mg/dL (<2.0)
[2020-09-30] MEDS ORDERED: LACTATED RINGERS 1,000 ML IV ONE (14:08)
== END 2020-09-30 16:25 | disposition home or self-care (01) ==
LOC: TRG 12:43 → APU 12:44 → TRG 16:25
PROVIDERS: ATTEND Obstetrics & Gynecology
DX: O26.893 Other specified pregnancy related conditions, third trimester (principal); R10.9 Unspecified abdominal pain; O47.03 False labor before 37 completed weeks of gestation, third trimester; Z3A.28 28 weeks gestation of pregnancy
CPT/HCPCS: 59025; 81001; 96361; 96365; 96372; J2270; J3410; J7120; 96360

== ENCOUNTER 2020-12-23 11:16 | Outpatient (CLI) | payer OTHER ==
[2020-12-23] MEDS ORDERED: MORPHINE 10 MG/1 ML INJ IM PRN (12:55)
[2020-12-23] MEDS ORDERED: MORPHINE 4 MG/1 ML INJ IM PRN (13:00)
[2020-12-23] MEDS ORDERED: hydrOXYzine PAMOATE 25 MG CAP PO ONE (14:00)
[2020-12-23 14:27] VITALS: BP 111/68
[2020-12-23] MEDS ORDERED: LORazepam 2 MG TAB PO ONE (14:41)
== END 2020-12-23 15:13 | disposition home or self-care (01) ==
LOC: TRG 11:16 → APU 11:17 → TRG 15:13
PROVIDERS: ATTEND Obstetrics & Gynecology
DX: O47.1 False labor at or after 37 completed weeks of gestation (principal); R06.02 Shortness of breath; Z3A.40 40 weeks gestation of pregnancy
CPT/HCPCS: 59025

== ENCOUNTER 2021-01-01 20:04 | Inpatient (IN) | payer OTHER ==
--- NOTE | 2021-01-01 22:43 | Ultrasound Report ---
ULTRASOUND OBSTETRIC LIMITED ULTRASOUND BIOPHYSICAL PROFILE INDICATION / CLINICAL INFORMATION: Postdates with abdominal pain. Evaluate well-being. COMPARISON: OB ultrasound from 09/16/2020. FINDINGS: BREATHING MOVEMENT = 2 GROSS BODY MOVEMENT = 2 TONE = 2 QUALITATIVE AMNIOTIC FLUID VOLUME = 2 TOTAL BIOPHYSICAL SCORE = 8/8 AMNIOTIC FLUID INDEX (cm) = 5.4 PRESENTATION: Cephalic. HEART RATE (beats per minute): 166 ADDITIONAL FINDINGS: None. IMPRESSION: 1. Biophysical Score = 8/8 2. Decreased amniotic fluid index of 5.4 cm. Signer Name: Zay Ramires MD Signed: 01/01/2021 10:38 PM Workstation Name: [id number]
[2021-01-01] MEDS ORDERED: LACTATED RINGERS 1,000 ML ONE (23:50)
[2021-01-01] MEDS ORDERED: miSOPROStol 200 MCG TAB PR PRN (23:52)
[2021-01-01] MEDS ORDERED: PROMETHAZINE 25 MG TAB PO PRN (23:52)
[2021-01-01] MEDS ORDERED: fentaNYL 100 MCG/2 ML INJ IV PRN (23:52)
[2021-01-01] MEDS ORDERED: MINERAL OIL 30 ML ORAL LIQD PO PRN (23:52)
[2021-01-01] MEDS ORDERED: LOPERAMIDE 2 MG CAP PO PRN (23:52)
[2021-01-01] MEDS ORDERED: LIDOCAINE (2%) 20 MG/1 ML VIAL 20 ML MDV INFILTRATI ONE (23:52)
[2021-01-01] MEDS ORDERED: ACETAMINOPHEN 325 MG TAB PO PRN (23:52)
[2021-01-01] MEDS ORDERED: ePHEDrine SULFATE 50 MG/1 ML INJ IV PRN (23:52)
[2021-01-01] MEDS ORDERED: NalbUPHINE 10 MG/1 ML INJ IV PRN (23:52)
[2021-01-01] MEDS ORDERED: OXYTOCIN 10 UNIT/1 ML INJ IM PRN (23:52)
[2021-01-01] MEDS ORDERED: CARBOPROST TROMETHAMINE 250 MCG/1 ML INJ IM PRN (23:52)
[2021-01-01] MEDS ORDERED: METHYLERGONOVINE MALEATE 0.2 MG/ML VIAL IM PRN (23:52)
[2021-01-01] MEDS ORDERED: TERBUTALINE 1 MG/1 ML INJ SUB-Q PRN (23:52)
[2021-01-01] MEDS ORDERED: ONDANSETRON 4 MG/2 ML INJ IV PRN (23:52)
--- NOTE | 2021-01-02 00:04 | History and Physical Report ---
History of Present Illness Date of examination: 01/02/21 Date of admission: 01/02/21 Chief complaint: contractions History of present illness: at 40.5wks by records, care at [facility]. pt sates she has scheduled induction tomorrow and she started having contractions. Admits to movement, denies leakage of fluid or vaginal bleeding. Pt denies headache. Pt admits to taking her valtrex med. Pt also states that she noticed that she has some shortness or breath in the past 4days and denies chest pain. Pt wants to get an epidural with this delivery and states she delivered her last baby really quickly and missed her epidural pain med. 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 History: herpes (Diagnosed this preg by labs, pt denies any outbreaks) Family/Genetic History: none Social history: no significant social history - Obstetrical History Expected Date of Delivery: 12/27/20 Actual Gestation: 40 Week(s) 6 Day(s) : 4 Para: 3 Number of Living Children: 3 Medications and Allergies Allergies Allergy/AdvReac Type Severity Reaction Status Date / Time No Known Allergies Allergy Verified 09/30/20 14:07 Home Medications Medication Instructions Recorded Confirmed Last Taken Type [facility] Gummies 1 tab PO DAILY 01/01/21 01/01/21 1 Day Ago History ~12/31/20 Valacyclovir HCl [Valtrex] 1 tab PO DAILY 01/01/21 01/01/21 1 Day Ago History ~12/31/20 Review of Systems All systems: negative (contractions) - Vital Signs Vital signs: Vital Signs Temp Pulse Resp BP 98.1 F 96 H 18 123/71 01/01/21 20:51 01/01/21 20:51 01/01/21 20:51 01/01/21 20:51 Temp Pulse Resp BP Pulse Ox 98.6 F 93 H 18 128/75 01/01/21 23:16 01/01/21 23:26 01/01/21 23:16 01/01/21 23:26 - Physical Exam Breasts: Positive: deferred Abdomen: Positive: normal appearance, soft Genitourinary (Female): Positive: normal external genitalia Vulva: both: normal (no lesions seen) Uterus: Positive: enlarged (non-tender, gravid) Extremities: Positive: normal - Obstetrical FHR: category 1 Uterine Contraction Monitor Mode: External Cervical Dilatation: 1 (repeat 1-2cm by me after 1hr) Cervical Effacement Percentage: 40 (repeated 70% by me after 1hr) station: -3 Uterine Contraction Pattern: Irregular Uterine Contraction Intensity: Mild Results All other labs normal. Assessment and Plan Term , post dates with oligohydramnios 1. Admit to labor and delivery, augment with pitocin if unchanged since pt having ctx irregulary 2. Anesthesia notified of pt desire later for epidural 3. Will check blood type and screen 4. Continue valtrex med for herpes Expect
[2021-01-02 00:48] LABS: Hematocrit 33.3 % (30.3-42.9); Mean Corpuscular HGB Conc 33 % (30-34); Mean Corpuscular Volume 88 fl (79-97); Platelet Count 194 K/mm3 (140-440); Red Cell Distribution Width 14.4 % (13.2-15.2)
[2021-01-02] MEDS: OXYTOCIN DRIP 30 UNITS/500 ML BAG IV SCH ×2 (06:10→18:53)
--- NOTE | 2021-01-02 06:24 | Event Note ---
Date: 01/02/21 pt evaluated and noted to have low FHR baseline 100-110's and nurse Sylvie currently at bedside told to place oxygen therapy. Nurse also just start pitocin 2mu/min and pelvic therefore done by me and same was 2-3//-2 vtx/intact. Pt with ocassional ctx only. Expect
[2021-01-02] MEDS: LACTATED RINGERS 1,000 ML IV SCH ×4 (07:21→14:25)
--- NOTE | 2021-01-02 09:03 | Progress Note ---
Assessment and Plan A: IUP@ 40.5 wks postdates with oligo GBS neg P: Continue monitoring Pain med/Epidural prn Continue Pitocin Anticipate Subjective - Subjective Date of service: 01/02/21 Principal diagnosis: IUP@ 40.5wks postdates & oligo Patient reports: movement normal, contractions Objective - Vital Signs Vital Signs: Vital Signs - 12hr 01/01/21 01/01/21 01/02/21 23:16 23:26 04:20 Temperature 98.6 F 98.4 F Pulse Rate 93 H 75 Respiratory 18 18 Rate Blood Pressure 128/75 123/66 Blood Pressure 128/75 [Left] Blood Pressure [Right] O2 Sat by Pulse Oximetry 01/02/21 01/02/21 01/02/21 07:00 07:02 07:08 Temperature 97.9 F Pulse Rate 78 77 78 Respiratory 17 Rate Blood Pressure 88/52 95/57 Blood Pressure [Left] Blood Pressure 95/57 [Right] O2 Sat by Pulse 100 Oximetry 01/02/21 01/02/21 01/02/21 07:10 07:15 07:20 Temperature Pulse Rate 81 82 81 Respiratory Rate Blood Pressure Blood Pressure [Left] Blood Pressure [Right] O2 Sat by Pulse 100 99 100 Oximetry 01/02/21 01/02/21 01/02/21 07:25 07:30 07:33 Temperature Pulse Rate 81 78 82 Respiratory Rate Blood Pressure 121/77 Blood Pressure [Left] Blood Pressure [Right] O2 Sat by Pulse 99 99 Oximetry 01/02/21 01/02/21 01/02/21 07:35 07:40 07:45 Temperature Pulse Rate 80 80 81 Respiratory Rate Blood Pressure Blood Pressure [Left] Blood Pressure [Right] O2 Sat by Pulse 99 99 99 Oximetry 01/02/21 01/02/21 01/02/21 07:50 07:55 08:00 Temperature Pulse Rate 82 85 78 Respiratory Rate Blood Pressure Blood Pressure [Left] Blood Pressure [Right] O2 Sat by Pulse 99 99 98 Oximetry 01/02/21 01/02/21 01/02/21 08:05 08:10 08:15 Temperature Pulse Rate 83 78 91 H Respiratory Rate Blood Pressure Blood Pressure [Left] Blood Pressure [Right] O2 Sat by Pulse 99 98 98 Oximetry 01/02/21 01/02/21 01/02/21 08:20 08:25 08:30 Temperature Pulse Rate 80 75 79 Respiratory Rate Blood Pressure Blood Pressure [Left] Blood Pressure [Right] O2 Sat by Pulse 97 97 98 Oximetry 01/02/21 01/02/21 01/02/21 08:33 08:35 08:40 Temperature Pulse Rate 77 78 85 Respiratory Rate Blood Pressure 94/51 Blood Pressure [Left] Blood Pressure [Right] O2 Sat by Pulse 98 98 Oximetry 01/02/21 01/02/21 01/02/21 08:45 08:50 08:55 Temperature Pulse Rate 75 82 76 Respiratory Rate Blood Pressure Blood Pressure [Left] Blood Pressure [Right] O2 Sat by Pulse 99 99 98 Oximetry - Exam Abdomen: Present: normal appearance, soft, normal bowel sounds Vulva: both: normal Uterus: Present: normal FHR: category 1 Uterine Contraction Monitor Mode: External Cervical Dilatation: 2.5 (per nurse) Cervical Effacement Percentage: 70 (per nurse) station: -2 Uterine Contraction Pattern: Irregular Uterine Tone Measurement Phase: Resting Uterine Contraction Intensity: Mild Extremities: normal - Labs Labs: Laboratory Results - last 24 hr 01/01/21 01/01/21 23:10 23:10 WBC 11.0 RBC 3.80 Hgb 11.0 Hct 33.3 MCV 88 MCH 29 MCHC 33 RDW 14.4 Plt Count 194 Blood Type O POSITIVE Antibody Screen Negative
[2021-01-02] MEDS ORDERED: ONDANSETRON 4 MG/2 ML INJ IV PRN ×2 (14:09→16:54)
[2021-01-02] MEDS ORDERED: LACTATED RINGERS 250 ML IV SOLN IV ONE (14:09)
[2021-01-02] MEDS ORDERED: ePHEDrine SULFATE 50 MG/1 ML INJ IV PRN (14:09)
[2021-01-02] MEDS ORDERED: NalbUPHINE 10 MG/1 ML INJ IV PRN (14:09)
[2021-01-02] MEDS ORDERED: diphenhydrAMINE 50 MG/ML VIAL IV PRN (14:09)
[2021-01-02] MEDS ORDERED: NALOXONE 2 MG/2 ML INJ IV PRN (14:09)
--- NOTE | 2021-01-02 14:36 | Anesthesia Consultation ---
Anesthesia Consult and Med Hx Date of service: 01/02/21 - Airway Anesthetic Teeth Evaluation: Good ROM Head & Neck: Adequate Mental/Hyoid Distance: Adequate Mallampati Class: Class II Intubation Access Assessment: Probably Good - Pulmonary Exam CTA: Yes - Cardiac Exam Cardiac Exam: RRR - Pre-Operative Health Status ASA Pre-Surgery Classification: ASA2 Proposed Anesthetic Plan: Epidural - Pulmonary Hx Smoking: No Hx Asthma: No COPD: No Hx Pneumonia: No Hx Sleep Apnea: No - Cardiovascular System Hx Hypertension: No Hx Heart Attack/AMI: No Hx Angina: No - Central Nervous System Hx Seizures: No Hx Psychiatric Problems: No - Gastrointestinal Hx Gastroesophageal Reflux Disease: No - Endocrine Hx Renal Disease: No Hx End Stage Renal Disease: No Hx Liver Disease: No Hx Insulin Dependent Diabetes: No Hx Non-Insulin Dependent Diabetes: No Hx Hypothyroidism: No Hx Hyperthyroidism: No - Hematic Hx Anemia: No Hx Sickle Cell Disease: No - Other Systems Hx Alcohol Use: (not since ) Hx Obesity: Yes
--- NOTE | 2021-01-02 14:38 | Progress Note ---
Labor Epidural - Labor Epidural Start Time: 14:15 Stop Time: 14:33 Performed by:: CASI LEON ([facility]an [facility]) Procedure: Patient is requesting epidural for labor and pain. H&P, labs were reviewed. Patient IDed, H&P reviewed, all questions and concerns were answered, and consent was signed. Timeout was performed at bedside. Patient in sitting position. Sterile prep and drape was performed. 3ml of 1% lidocaine skin wheal at L[3]- L [4]. 18-gauge KO-SU epidural needle was advanced to loss of resistance with air technique 8cm. Negative CSF negative blood. Epidural catheter advanced to [14] centimeters. [negative] Aspiration [negative] test dose. Sterile dressing applied. Patient tolerated procedure.
[2021-01-02] MEDS ORDERED: fentaNYL-BUPIV 2 MCG/ML-0.125% 200 MCG/100 ML BAG EPIDURAL SCH (15:00)
[2021-01-02] MEDS ORDERED: MAGNESIUM HYDROXIDE (MOM) ORAL LIQD UDC PO PRN (16:54)
[2021-01-02] MEDS ORDERED: PROMETHAZINE 25 MG RECT SUPP PR PRN (16:54)
[2021-01-02] MEDS ORDERED: WITCH HAZEL/ GLYCERIN PAD TP PRN (16:54)
[2021-01-02] MEDS ORDERED: PROMETHAZINE 25 MG TAB PO PRN (16:54)
[2021-01-02] MEDS ORDERED: diphenhydrAMINE 25 MG CAP PO PRN (16:54)
[2021-01-02] MEDS ORDERED: LANOLIN/ZINC/DIMETHICONE (LANSINOH) 7 GM TP PRN (16:54)
--- NOTE | 2021-01-02 17:13 | Procedure Note ---
OB Delivery Note - Delivery Date of Delivery: 01/02/21 Surgeon: ROCHELLE PEDRAZA Estimated blood loss: <100cc - Vaginal Delivery presentation: vertex Delivery position: OA Intrapartum events: other(please specify) (oligo) Delivery induction: cervidil Delivery augmentation: pitocin Delivery monitor: external FHT, external uterine Route of delivery: Delivery placenta: spontaneous Delivery cord: 3 umbilical vessels Episiotomy: none Delivery laceration: none Anesthesia: epidural Delivery comments: Called to for delivery. SVE 10/100/+1 and pt was pushing. of a viable live male in OA position. Spontaneous delivery of head. Tight shoulders were delivered with pt in Bharath position while nurse was performing s/p pressure. Infant was placed on mom's chest for skin to skin bonding while nurse dried and stimulated baby. Delayed cord clamping then cord was clamped x 2 and FOB was guided in cutting the cord. Baby was taken to warmer for an initial asses 8/9. Spontaneous delivery of an intact placenta with CVX3. FF@ U2 with fundal massage and IV Pitocin. An exploration of tears revealed none. Mom and baby was left in stable condition with nurses. Cord blood was obtained and sent to lab. QBL 175 cc per nurse. FW 3860 Gms. - A at 1 minute: 8 at 5 minutes: 9 Infant Gender: Male (FW 3860 Gms)
[2021-01-02] MEDS: IBUPROFEN 600 MG TAB PO SCH (23:26)
[2021-01-03] MEDS: oxyCODONE /ACETAMINOPHEN 5-325MG TAB PO PRN ×3 (02:19→20:25)
[2021-01-03 06:36] LABS: Hematocrit 35.7 % (30.3-42.9)
[2021-01-03] MEDS: IBUPROFEN 600 MG TAB PO SCH ×5 (06:38→23:25)
--- NOTE | 2021-01-03 12:51 | Progress Note ---
Assessment and Plan - Patient Problems (1) Status post vaginal delivery Current Visit: Yes Status: Acute Plan to address problem: Patient doing well day 1. Patient meeting goals. Anticipate discharge in 24 hours. Subjective - Subjective Date of service: 01/03/21 Principal diagnosis: IUP@ 40.5wks postdates & oligo Interval history: Patient doing well in the room. Meeting goals. Baby doing well. Patient reports: appetite normal, voiding normally, pain well controlled, flatus : doing well Objective - Vital Signs Latest vital signs: Vital Signs Temp Pulse Resp BP Pulse Ox Pulse Ox 01/03/21 12:34 97.8 F 77 18 114/74 100 01/03/21 08:00 0 L 01/03/21 07:20 97.6 F 72 16 104/66 99 01/03/21 06:38 18 01/03/21 02:19 18 01/02/21 23:54 97.5 F L 75 20 105/61 99 01/02/21 20:04 98.1 F 83 20 108/61 98 01/02/21 19:30 99 01/02/21 19:05 99 01/02/21 19:04 98.6 F 01/02/21 18:32 83 99/48 99 01/02/21 17:57 82 113/59 01/02/21 17:42 82 109/56 01/02/21 17:28 88 108/66 01/02/21 17:12 90 124/61 01/02/21 16:57 91 H 115/58 01/02/21 16:46 96 H 113/59 01/02/21 16:28 98.1 F 88 108/61 100 01/02/21 16:23 90 99 01/02/21 16:18 87 99 01/02/21 16:13 78 97/54 99 01/02/21 16:08 84 98 01/02/21 16:05 87 61 L 01/02/21 16:03 81 99 01/02/21 15:58 89 100/56 98 01/02/21 15:53 88 98 01/02/21 15:48 81 97 01/02/21 15:44 85 100/56 01/02/21 15:43 86 98 01/02/21 15:40 95 H 74 L 01/02/21 15:38 92 H 99 01/02/21 15:34 91 H 117/70 01/02/21 15:33 91 H 100 01/02/21 15:30 85 77 L 01/02/21 15:28 67 62 L 01/02/21 15:27 89 123/75 01/02/21 15:24 93 H 45 L 01/02/21 15:23 88 97 01/02/21 15:18 85 97 01/02/21 15:17 88 93 01/02/21 15:14 80 120/72 01/02/21 15:13 83 97 01/02/21 15:12 86 93 01/02/21 15:08 95 H 98 01/02/21 15:06 87 94 01/02/21 15:03 80 100 01/02/21 14:58 79 119/72 100 01/02/21 14:53 83 99 01/02/21 14:48 90 99 01/02/21 14:43 87 99 01/02/21 14:41 81 125/71 01/02/21 14:39 96 H 117/66 01/02/21 14:38 90 99 01/02/21 14:37 92 H 122/62 01/02/21 14:36 96 H 94 01/02/21 14:35 93 H 136/79 01/02/21 14:33 101 H 139/83 99 01/02/21 14:31 100 H 132/83 01/02/21 14:28 102 H 95 01/02/21 14:27 96 H 87 01/02/21 14:23 103 H 96 01/02/21 14:22 108 H 89 01/02/21 14:18 107 H 100 01/02/21 14:13 77 122/81 48 L 01/02/21 14:08 82 97 01/02/21 13:54 92 H 79 L 01/02/21 13:49 90 97 01/02/21 13:46 91 H 73 L 01/02/21 13:44 106 H 99 01/02/21 13:39 84 96 01/02/21 13:38 97 H 94 01/02/21 13:34 83 96 01/02/21 12:55 83 98 Intake and Output 01/02/21 01/03/21 01/03/21 23:59 07:59 15:59 Intake Total 468 240 Output Total 600 Balance -132 240 Intake: IV 108 PITOCin/NS 30 UNIT/500ML 108 30 units In 500 ml @ 2 mls/hr IV TITR FATIMAH Rx#: [id number] Oral 360 240 Output: Urine 600 Uretheral (Blood) 600 Other: Total, Intake Amount 240 120 # Voids Void 1 1 1 Estimated Blood Loss 175 - Exam Abdomen: Present: normal appearance, normal bowel sounds Uterus: Present: firm, fundal height below umbilicus
--- NOTE | 2021-01-03 12:52 | Discharge Summary ---
Providers - Providers Date of Admission: 01/02/21 17:47 Date of discharge: 01/03/21 Attending physician: BEATRIZ GLASGOW Primary care physician: BEATRIZ GLASGOW Hospitalization Reason for admission: other (oligohydramnios) Delivery: Episiotomy: none Laceration: none Incision: normal Other procedures: none complications: none Discharge diagnosis: IUP at term delivered [place] baby: male Hospital course: at 40.5wks by records, care at [facility], [facility] pt sates she has scheduled induction tomorrow and she started having contractions. Admits to movement, denies leakage of fluid or vaginal bleeding. Pt denies headache. Pt admits to taking her valtrex med. Pt also states that she noticed that she has some shortness or breath in the past 4days and denies chest pain. Pt wants to get an epidural with this delivery and states she delivered her last baby really quickly and missed her epidural pain med. Patient admitted for oligohydramnios at term, now status post vaginal delivery on 01-02-2021 over intact perineum. Patient meeting goals and discharge good condition on day 2. Condition at discharge: Good Disposition: DC-01 TO HOME OR SELFCARE - Discharge Diagnoses (1) Status post vaginal delivery Status: Acute Plan - Provider Discharge Summary Activity: routine Diet: routine Instructions: routine Additional instructions: [] Smoking cessation referral if applicable(refer to patient education folder for contact #) [] Refer to [facility]'s [facility] Booklet Call your doctor immediately for: * Fever > 100.5 * Heavy vaginal bleeding ( >1 pad per hour) * Severe persistent headache * Shortness of breath * Reddened, hot, painful area to leg or breast * Drainage or odor from incision. * Keep incision clean and dry at all times and follow doctor's instructions regarding bathing/showering - Follow up plan Follow up: PRIMARY CARE, [Referring] - 6 Weeks
--- NOTE | 2021-01-03 16:02 | Post Anesthesia Evaluation ---
- Post Anesthesia Evaluation Patient Participated: Yes Airway Patent: Yes Stable Respiratory Function: Yes Nausea/Vomiting: No Temp > 96.8F: Yes Pain Manageable: Yes Adequeate Hydration: Yes Anesthesia Complications: No Block Receding Appropriately: Yes Patient on Ventilator: No
[2021-01-04] MEDS: IBUPROFEN 600 MG TAB PO SCH (05:41)
[2021-01-04 12:57] VITALS: BP 128/84
== END 2021-01-04 12:50 | disposition home or self-care (01) | DRG 775 ==
LOC: TRG 20:04 → APU 20:06 → LD 23:44 → TRG 01-02 16:54 → LD 01-02 17:47 → OB 01-02 18:09
PROVIDERS: ADMIT Obstetrics & Gynecology; ATTEND Obstetrics & Gynecology
PROC: 10E0XZZ Delivery of Products of Conception, External Approach (ICD-10-PCS; principal; 2021-01-02)
PROC: 3E0P7VZ Introduction of Hormone into Female Reproductive, Via Natural or Artificial Opening (ICD-10-PCS; 2021-01-02)
PROC: 3E0R3BZ Introduction of Anesthetic Agent into Spinal Canal, Percutaneous Approach (ICD-10-PCS; 2021-01-02)
PROC: 00HU33Z Insertion of Infusion Device into Spinal Canal, Percutaneous Approach (ICD-10-PCS; 2021-01-02)
DX: O48.0 Post-term pregnancy (principal); O41.03X0 Oligohydramnios, third trimester, not applicable or unspecified; Z20.822 Contact with and (suspected) exposure to COVID-19; Z3A.40 40 weeks gestation of pregnancy; Z37.0 Single live birth; Z79.899 Other long term (current) drug therapy
CPT/HCPCS: 36415; 59025; 76815; 76819; 85014; 85018; 85027; 86850; 86900; 86901; G0378; J2590; J7120; U0003

== ENCOUNTER 2021-03-19 17:27 | Emergency (ER) | payer OTHER ==
[2021-03-19 18:00] VITALS: BP 122/79
[2021-03-19 18:52] LABS: Basophils % (Auto) 0.3 % (0.0-1.8); Eosinophils # (Auto) 0.1 K/mm3 (0.0-0.4); Eosinophils % (Auto) 1.4 % (0.0-4.3); Hematocrit 36.9 % (30.3-42.9); Lymphocytes # (Auto) 1.6 K/mm3 (1.2-5.4); Lymphocytes % (Auto) 24.4 % (13.4-35.0); Mean Corpuscular HGB Conc 35 % (30-34); Mean Corpuscular Volume 85 fl (79-97); Monocytes # (Auto) 0.7 K/mm3 (0.0-0.8); Monocytes % (Auto) 10.6 % (0.0-7.3); Platelet Count 272 K/mm3 (140-440); Red Blood Count 4.35 M/mm3 (3.65-5.03); Red Cell Distribution Width 13.6 % (13.2-15.2)
[2021-03-19 19:12] LABS: Alanine Aminotransferase 18 units/L (7-56); Albumin 4.1 g/dL (3.9-5); Blood Urea Nitrogen 13 mg/dL (7-17); Calcium 9.2 mg/dL (8.4-10.2); Hemolysis Index 17
[2021-03-19 19:13] LABS: BUN/Creatinine Ratio 33
--- NOTE | 2021-03-19 19:17 | Emergency Department Report ---
ED Shortness of Breath HPI - General Chief Complaint: Dyspnea/Respdistress Stated Complaint: COVID 19/CHEST PAIN Time Seen by Provider: 03/19/21 18:25 Source: patient Mode of arrival: Ambulatory Limitations: No Limitations - History of Present Illness Initial Comments: Patient is a 20-year-old female presents emergency room with complaints of shortness of breath that began last night. She has associated chest pain which she describes as a tightness. Patient states that she is also been having pleuritic pain. Patient states that she tested positive for COVID-19 last week. She has not been vaccinated for COVID-19. She states that she had a fever for approximately 3 to 4 days but that resolved. She states yesterday she did have episode of vomiting but has had no further episodes of vomiting today and is able to tolerate p.o. intake. She has an occasional dry cough. She denies any hemoptysis, diarrhea, sore throat, ear pain, leg swelling. No past medical history. No allergies to medications. She states that her is also positive for COVID-19. - Related Data Home Medications Medication Instructions Recorded Confirmed Last Taken [facility] 1 tab PO DAILY 01/01/21 01/01/21 1 Day Ago ~12/31/20 Valacyclovir HCl [Valtrex] 1 tab PO DAILY 01/01/21 01/01/21 1 Day Ago ~12/31/20 Previous Rx's Medication Instructions Recorded Last Taken Type Azithromycin [Zithromax TAB] 250 mg PO QDAY 5 Days #6 tablet 03/19/21 Unknown Rx Dexamethasone 6 mg PO DAILY 7 Days #7 tab 03/19/21 Unknown Rx Allergies Allergy/AdvReac Type Severity Reaction Status Date / Time No Known Allergies Allergy Verified 09/30/20 14:07 ED Review of Systems ROS: Stated complaint: COVID 19/CHEST PAIN Other details as noted in HPI Comment: All other systems reviewed and negative ED Past Medical Hx - Past Medical History Hx Hypertension: No Hx Heart Attack/AMI: No Hx Congestive Heart Failure: No Hx Diabetes: No Hx Deep Vein Thrombosis: No Hx Liver Disease: No Hx Renal Disease: No Hx Sickle Cell Disease: No Hx Seizures: No Hx Asthma: No Hx COPD: No Hx HIV: No - Surgical History Past Surgical History?: No - Social History Smoking Status: Never Smoker Substance Use Type: Alcohol - Medications Home Medications: Home Medications Medication Instructions Recorded Confirmed Last Taken Type [facility] Gummies 1 tab PO DAILY 01/01/21 01/01/21 1 Day Ago History ~12/31/20 Valacyclovir HCl [Valtrex] 1 tab PO DAILY 01/01/21 01/01/21 1 Day Ago History ~12/31/20 Azithromycin [Zithromax TAB] 250 mg PO QDAY 5 Days #6 tablet 03/19/21 Unknown Rx Dexamethasone 6 mg PO DAILY 7 Days #7 tab 03/19/21 Unknown Rx ED Physical Exam - General Limitations: No Limitations General appearance: alert, in no apparent distress - Head Head exam: Present: atraumatic, normocephalic - Eye Eye exam: Present: normal appearance - ENT ENT exam: Present: mucous membranes moist - Respiratory Respiratory exam: Present: normal lung sounds bilaterally. Absent: respiratory distress, wheezes, rales, rhonchi, stridor, chest wall tenderness, accessory muscle use, decreased breath sounds, prolonged expiratory - Cardiovascular Cardiovascular Exam: Present: regular rate, normal rhythm, normal heart sounds. Absent: systolic murmur, diastolic murmur, rubs, gallop - Neurological Exam Neurological exam: Present: alert, oriented X3 - Psychiatric Psychiatric exam: Present: normal affect, normal mood - Skin Skin exam: Present: warm, dry, intact ED Course Vital Signs 03/19/21 17:58 Temperature 98.3 F Pulse Rate 79 Respiratory 18 Rate Blood Pressure 122/79 O2 Sat by Pulse 99 Oximetry ED Medical Decision Making - Lab Data Result diagrams: 03/19/21 18:37 03/19/21 18:37 - EKG Data EKG shows normal: sinus rhythm, axis, intervals, QRS complexes, ST-T waves Rate: normal - Radiology Data Radiology results: report reviewed Ordering Physician: BREN CHAND Date of Service: 03/19/21 Procedure(s): XR chest routine 2V Accession Number(s): [id number] cc: BREN CHAND Fluoro Time In Minutes: CHEST 2 VIEWS INDICATION / CLINICAL INFORMATION: CP, SOB, positive Covid testing STUDY TIME: 1954 COMPARISON: None available. FINDINGS: SUPPORT DEVICES: None. HEART / MEDIASTINUM: No significant abnormality. LUNGS / PLEURA: No significant acute pulmonary or pleural abnormality. No pneumothorax. ADDITIONAL FINDINGS: No significant additional findings. Signer Name: Neri Small MD Signed: 03/19/2021 8:02 PM Workstation Name: [id number] Transcribed By: GJ Dictated By: Neri Small MD Electronically Authenticated By: Neri Small MD Signed Date/Time: 03/19/212001 DD/ 00 TD/TT: Ordering Physician: BREN CHAND Date of Service: 03/19/21 Procedure(s): CT angio chest Accession Number(s): [id number] cc: BREN CHAND CTA CHEST WITH CONTRAST INDICATION / CLINICAL INFORMATION: CP, SOB, COVID +, elevated d-dimer. TECHNIQUE: Axial CT images were obtained through the chest after injection of IV contrast. 3 plane MIP and/or 3D reconstructions were produced. All CT scans at this location are performed using CT dose reduction for ALARA by means of automated exposure control. COMPARISON: None available. FINDINGS: PULMONARY ARTERIES: No pulmonary emboli. THORACIC AORTA: No significant abnormality. HEART: No significant abnormality. CORONARY ARTERY CALCIFICATION: None. MEDIASTINUM / OPAL: No significant abnormality. PLEURA: No pleural effusion. No pneumothorax. LUNGS: Minimal patchy groundglass opacities in the periphery of the right lower lobe. The lungs are otherwise clear. ADDITIONAL FINDINGS: None. UPPER ABDOMEN: No acute findings. SKELETAL STRUCTURES: No significant osseous abnormality. IMPRESSION: 1. No CT evidence for pulmonary embolism. 2. Minimal patchy groundglass opacities in the periphery of the right lower lobe likely represent infectious/inflammatory etiology. Signer Name: Moise Vilchis MD Signed: 03/19/2021 9:19 PM Workstation Name: [id number] Transcribed By: DB Dictated By: MOISE VILCHIS MD Electronically Authenticated By: MOISE VILCHIS MD Signed Date/Time: 03/19/212118 DD/ 14 TD/TT: - Medical Decision Making Patient is a 20-year-old female presents emergency room with complaints of shortness of breath that began last night. She has associated chest pain which she describes as a tightness. Patient states that she is also been having pleuritic pain. Patient states that she tested positive for COVID-19 last week. She has not been vaccinated for COVID-19. She states that she had a fever for approximately 3 to 4 days but that resolved. She states yesterday she did have episode of vomiting but has had no further episodes of vomiting today and is able to tolerate p.o. intake. She has an occasional dry cough. She denies any hemoptysis, diarrhea, sore throat, ear pain, leg swelling. No past medical history. No allergies to medications. She states that her is also posi tive for COVID-19. Vitals are normal. Breath sounds are clear bilaterally. EKG is within normal limits. CXR: SUPPORT DEVICES: None. HEART / MEDIASTINUM: No significant abnormality. LUNGS / PLEURA: No significant acute pulmonary or pleural abnormality. No pneumothorax. ADDITIONAL FINDINGS: No significant additional findings. Lab significant for elevated D-dimer, otherwise normal. CT angio chest: 1. No CT evidence for pulmonary embolism. 2. Minimal patchy groundglass opacities in the periphery of the right lower lobe likely represent infectious/inflammatory etiology. Patient is able to maintain oxygen saturation 95% or greater on room air without any difficulty. She was ambulated in the emergency department and continued maintaining her oxygen saturation. Findings likely consistent with mild COVID-19 pneumonia. Patient given prescription for medication. Advised patient Please take medication as prescribed. Increase your fluid intake. Follow-up with your primary care doctor for reexamination. Return to emergency room for any new or worsening symptoms. You need to self quarantine for 10 days from the onset of your symptoms. Recommend for you to get a pulse oximetry meter [id number] and if your oxygen is dropping below 93% return to emergency room immediately. Critical care attestation.: If time is entered above; I have spent that time in minutes in the direct care of this critically ill patient, excluding procedure time. ED Disposition Clinical Impression: SOB (shortness of breath), Pneumonia due to COVID-19 virus Chest pain Qualifiers: Chest pain type: chest pain on breathing Qualified Code(s): R07.1 - Chest pain on breathing Disposition: 01 HOME / SELF CARE / HOMELESS Is pt being admited?: No Does the pt Need Aspirin: No Condition: Stable Instructions: COVID-19, Bacterial Pneumonia (ED) Additional Instructions: Please take medication as prescribed. Increase your fluid intake. Follow-up with your primary care doctor for reexamination. Return to emergency room for any new or worsening symptoms. You need to self quarantine for 10 days from the onset of your symptoms. Recommend for you to get a pulse oximetry meter [id number] and if your oxygen is dropping below 93% return to emergency room immediately. Prescriptions: Dexamethasone 6 mg PO DAILY 7 Days #7 tab Azithromycin [Zithromax TAB] 250 mg PO QDAY 5 Days #6 tablet Referrals: PRIMARY CARE, [Primary Care Provider] - 2-3 Days Time of Disposition: 21:24 Print Language: [place] HEART Score - HEART Score History: Slightly suspicious EKG: Normal Age: < 45 Risk factors: No known risk factors Troponin: Troponin T < 0.010 ng/mL (0.00-0.029) 03/19/21 18:37 Troponin: < normal limit HEART Score: 0
--- NOTE | 2021-03-19 20:06 | XRay Report ---
CHEST 2 VIEWS INDICATION / CLINICAL INFORMATION: CP, SOB, positive Covid testing STUDY TIME: 1954 COMPARISON: None available. FINDINGS: SUPPORT DEVICES: None. HEART / MEDIASTINUM: No significant abnormality. LUNGS / PLEURA: No significant acute pulmonary or pleural abnormality. No pneumothorax. ADDITIONAL FINDINGS: No significant additional findings. Signer Name: Neri Small MD Signed: 03/19/2021 8:02 PM Workstation Name: [id number]
--- NOTE | 2021-03-19 21:23 | Cat Scan Report ---
CTA CHEST WITH CONTRAST INDICATION / CLINICAL INFORMATION: CP, SOB, COVID +, elevated d-dimer. TECHNIQUE: Axial CT images were obtained through the chest after injection of IV contrast. 3 plane CO P and/or 3D reconstructions were produced. All CT scans at this location are performed using CT dose reduction for ALARA by means of automated exposure control. COMPARISON: None available. FINDINGS: PULMONARY ARTERIES: No pulmonary emboli. THORACIC AORTA: No significant abnormality. HEART: No significant abnormality. CORONARY ARTERY CALCIFICATION: None. MEDIASTINUM / OPAL: No significant abnormality. PLEURA: No pleural effusion. No pneumothorax. LUNGS: Minimal patchy groundglass opacities in the periphery of the right lower lobe. The lungs are o therwise clear. ADDITIONAL FINDINGS: None. UPPER ABDOMEN: No acute findings. SKELETAL STRUCTURES: No significant osseous abnormality. IMPRESSION: 1. No CT evidence for pulmonary embolism. 2. Minimal patchy groundglass opacities in the periphery of the right lower lobe likely represent inf ectious/inflammatory etiology. Signer Name: Moise Dallas MD Signed: 03/19/2021 9:19 PM Workstation Name: [id number]
--- NOTE | 2021-03-20 10:40 | Electrocardiograph Report ---
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
== END 2021-03-19 21:41 | disposition home or self-care (01) ==
LOC: ED 17:27
DX: U07.1 COVID-19 (principal); J12.82 Pneumonia due to coronavirus disease 2019; R06.02 Shortness of breath; R07.81 Pleurodynia
CPT/HCPCS: 36415; 71046; 71275; 80053; 83880; 84484; 84703; 85025; 85379; 93005; 99284; Q9967